=== PATIENT | female | born 1945 ===

== ENCOUNTER 2020-01-15 07:00 | Day surgery (SDC) | payer OTHER ==
[2020-01-15] MEDS ORDERED: CANDE PO (09:58)
[2020-01-15] MEDS ORDERED: TYLEN (10:00)
[2020-01-15] MEDS ORDERED: ASPIR 8181 MG PO (10:00)
[2020-01-15] MEDS ORDERED: ATACAND HCT 321 EAC1 PO (10:18)
[2020-01-15] MEDS ORDERED: [UNRECOGNIZED DRUG - CODE] PO (10:19)
[2020-01-15] MEDS ORDERED: PRAMIPEXOLE E2.25 MG PO (10:21)
[2020-01-15] MEDS ORDERED: TYLENOL PO (10:24)
[2020-01-15] MEDS ORDERED: PERCOCET 5-3251 EACH PO (14:40)
[2020-01-15] MEDS ORDERED: ALEVE220 M1 PO (14:40)
[2020-01-15] MEDS ORDERED: DUI500 PO (14:40)
== END 2020-01-15 13:00 | disposition home or self-care (01) ==
LOC: CIR.AMB 07:00
DX: S52.532A Colles' fracture of left radius, initial encounter for closed fracture (principal); S52.692A Other fracture of lower end of left ulna, initial encounter for closed fracture; M81.0 Age-related osteoporosis without current pathological fracture
CPT/HCPCS: 25609; 20902; 25652; C1776